=== PATIENT | female | born 1980 | race African-American/Black ===

== ENCOUNTER 2016-12-25 21:00 | Emergency (ER) ==
[2016-12-25] MEDS ORDERED: ROCEPHIN IM ONE (22:15)
[2016-12-25] MEDS ORDERED: DECADRON IM ONE (22:15)
[2016-12-25] MEDS ORDERED: XYLOCAINE-MPF 1% INJ ONE (22:15)
--- NOTE | 2016-12-25 22:20 | PROVIDER DOCUMENTATION ---
HPI-EENT General - General Chief Complaint: Flu Symptoms Stated Complaint: FLU SX Time Seen by Provider: 12/25/16 22:13 Source: patient Allergies/Adverse Reactions: Patient Allergies Allergy/AdvReac Type Severity Reaction Status Date / Time No Known Allergies Allergy Verified 12/25/16 22:14 Home Medications: Home Medication List Medication Instructions Recorded Confirmed Last Taken Type Amoxicillin/Pot Clavulanate 875 mg PO Q12HR #14 tablet 12/25/16 Unknown Rx [Augmentin] Methylprednisolone [Medrol Dosepak] 4 mg PO DIRECTED #1 package 12/25/16 Unknown Rx Promethazine/Dextromethorphan 2 tsp PO Q4H PRN PRN #240 ml 12/25/16 Unknown Rx [Promethazine-Dm Syrup] - History of Present Illness-EENT General Nature of Presenting Problem: 36 yof c/o sore throat, cough, congestion, runny nose and body aches x2 days. PT coughing up yellow sputum. No fever. EENT Location: reports: throat Quality of Pain: reports: aching Severity: reports: mild Onset/Duration: reports: 2 days ago Timing: reports: still present Prearrival Treatment: Initiated no prearrival treatment Associated Symptoms: reports: cough, fever, nasal congestion/drainage Other injuries?: denies: neck, head, back, other Locality of Occurance: Home Similar Symptoms Previously?: No Recently seen or treated by another doctor?: No - Eyes Eye Problem Symptoms: denies: eye pain, decrease vision, blurred vision, double vision, curtain, other, burning, itching, sensitivity to light, redness, matting , orbital swelling, eyelid swelling, foreign body sensation - Ears Ear Problem Symptoms: reports: none - Throat/Dental Throat/Dental Problem Symptoms: reports: sore throat Review of Systems - Adult - REVIEW OF SYSTEMS - ADULT Constitutional: reports: see HPI, chills, fever. denies: no symptoms reported, fatique, night sweats, weight gain, weight loss, other Eyes: reports: no symptoms reported. denies: see HPI, discharge, dry eyes, decreased vision, blurred vision, double vision, eye pain, redness, other Ears, Nose, Mouth & Throat: reports: see HPI, throat pain, throat swelling. denies: no symptoms reported, ear discharge, ear pain, hearing loss, tinnitus, epistaxis, sinus problem, nose pain, loose teeth, mouth/dental pain, mouth swelling, hoarseness, other Cardiovascular: reports: no symptoms reported. denies: see HPI, chest pain, edema, heart murmur, irregular heart rate, orthopnea, palpitations, poor circulation, PND, syncope, other Respiratory: reports: see HPI, cough. denies: no symptoms reported, chronic cough, dyspnea on exertion, excessive sputum production, hemoptysis, pleurisy, shortness of breath, wheezing, other Gastrointestinal: reports: no symptoms reported. denies: see HPI, abdominal pain, hematemesis, constipation, diarrhea, difficulty swallowing, frequent heartburn, nausea, poor appetite, rectal bleeding, vomiting, other Genitourinary: reports: no symptoms reported. denies: see HPI, dysuria, discharge, frequency, flank pain, frequent UTI's, hematuria, hesitency, incontinence, urinary retention, urgency, other Musculoskeletal: reports: no symptoms reported. denies: see HPI, bone pain, back pain, frequent leg cramps, joint pain, joint swelling, muscle aches, muscle weakness, neck pain, other Integumentary: reports: no symptoms reported. denies: see HPI, hives, hair loss , itching, mole changes, nail changes, rash, skin sores/ulcer, skin thickening, other Neurological: reports: no symptoms reported. denies: see HPI, ataxia, dizziness /vertigo, headache/migraines, loss of balance, numbness, paresthesia, seizure, slurred speech, syncope, tremors, other All Other Systems: Reviewed and Negative Past History - Adult - PAST MEDICAL HISTORY-ADULT Review of Records: reports: Old Records Reviewed, Nursing Assessment Review, Medications Reviewed, Social history reviewed & non-contributory. Major Childhood Illnesses: reports: denies history - PRIOR SURGERIES/PROCEDURES Surgical/Procedure History: reports: none - IMMUNIZATION STATUS Childhood Immunizations: See Nurse Assessment Flu Vaccine: See Nurse Assessment Physical Exam- EENT - Physical Exam EENT Initial Vital Signs Reviewed: Yes General Appearance: appears well, alert, no apparent distress. negative: mild distress, moderate distress, severe distress, cachetic, obese, thin, anxious, lethargic, slow to respond, obtunded, combative, other Eye Exam: bilateral eye: normal inspection, PERRL, EOMI Ear Exam: bilateral ear: auricle normal, canal normal, TM normal Nasal Exam: discharge Throat Exam: pharynx swelling, pharynx tenderness Neck: non-tender, full range of motion, supple, normal inspection. negative: Brudzinski's sign, carotid bruit, C-spine tenderness, limited range of motion, lymphadenopathy, meningismus, trachial deviation, tender lateral, tender midline , thyromegaly, other Respiratory: chest non-tender, lungs clear, normal breath sounds, no pleuratic chest pain, no respiratory distress, no accessory muscle use Cardiovascular: normal peripheral pulses, regular rate, rhythm, no edema, no gallop, no JVD, no murmur Abdominal Exam: normal bowel sounds, non tender, soft, no organomegaly, no pulsatile mass Lymphatic: no adenopathy Back Exam: normal inspection, no CVA tenderness, no vertebral tenderness Extremity: normal range of motion, non-tender, normal gait, normal inspection, no pedal edema, no calf tenderness, normal capillary refill Integumentary: normal color, normal turgor, warm/dry Neurologic: grossly normal Psych/Mental Status: oriented x 3 Progress - PLAN OF CARE/RESULTS Progress/Plan/Lab Results: Laboratory Tests 12/25/16 21:15 Influenza A (Rapid) NEGATIVE Influenza B (Rapid) NEGATIVE Orders Category Date Time Status Flu [INFLUENZA SCREEN PL] Stat Lab 12/25/16 21:15 Completed CefTRIAXONE [Rocephin] Med 12/25/16 22:15 Discontinued 1 gm IM NOW ONE Dexamethasone [Decadron] Med 12/25/16 22:15 Discontinued 10 mg IM NOW ONE Lidocaine 1% Pf [Xylocaine-Mpf 1%] Med 12/25/16 22:15 Discontinued 5 ml INJ NOW ONE Vital Signs Temp Pulse Resp BP Pulse Ox 12/25/16 22:31 99.2 F 85 18 114/75 100 12/25/16 21:15 98.2 F 70 18 136/70 97 No Known Allergies Allergy (Verified 12/25/16 22:14) Amoxicillin/Pot Clavulanate [Augmentin] 875 mg PO Q12HR #14 tablet 12/25/16 Methylprednisolone [Medrol Dosepak] 4 mg PO DIRECTED #1 package 12/25/16 Promethazine/Dextromethorphan [Promethazine-Dm Syrup] 2 tsp PO Q4H PRN PRN #240 ml 12/25/16 Laboratory 12/25/16 21:15 Influenza A (Rapid) NEGATIVE Influenza B (Rapid) NEGATIVE Departure - Departure Time of Disposition Order: 22:16 DIAGNOSIS: Bronchitis Upper respiratory infection Qualifiers: URI type: unspecified URI Qualified Code(s): J06.9 - Acute upper respiratory infection, unspecified Disposition: HOME 01 Certified Medical Emergency: Emergent Condition: Stable Additional Instructions: ED Follow Up Instructions: You have been treated by a care provider in the Emergency Department. These instructions are being provided to you so you can have an understanding of how to care for yourself upon discharge. Upon discharge from the Emergency Department, you are responsible for making arrangements for follow-up care by a physician of your choice. Take all prescribed medications as directed. Return to the Emergency Department immediately for any new or worsening symptoms. You may call the Physician Referral phone number at [phone] to obtain a list of Physicians who are taking new patients. Prescriptions: Amoxicillin/Pot Clavulanate [Augmentin] 875 mg PO Q12HR #14 tablet Methylprednisolone [Medrol Dosepak] 4 mg PO DIRECTED #1 package Promethazine/Dextromethorphan [Promethazine-Dm Syrup] 2 tsp PO Q4H PRN PRN #240 ml PRN Reason: Cough Referrals: None,PCP [Primary Care Provider] - Forms: Return to School/Parent Work Instructions: Dextromethorphan; Promethazine oral solution, Acute Bronchitis, [id number], Upper Respiratory Infection, Adult, [id number], Methylprednisolone tablets, Amoxicillin; Clavulanic Acid extended-release tablets Attestation - Physician/ DANIEL Attestation Patient care was provided by Advanced Practice Provider:: Yes Advanced Practice Provider:: Cj Prado Advanced Practice Provider documentation review:: The Mid-level provider documentation, treatment plan and medical decision making was reviewed by the physician who agrees with all treatment and medical decision making by the [facility]. Physician Attestation - Physician Attestation I, the provider, attest to the following statement:: Kirk Aquino Physician documentation Attestation:: This documentation recorded by the scribe accurately reflects the service I personally performed and the decisions made by me.
[2016-12-25 22:36] VITALS: BP 114/75
== END 2016-12-25 22:39 | disposition home or self-care (01) ==
LOC: P.ED 21:00
DX: J40 Bronchitis, not specified as acute or chronic (principal); J06.9 Acute upper respiratory infection, unspecified; J02.9 Acute pharyngitis, unspecified; R05 Cough; R09.81 Nasal congestion; R09.89 Other specified symptoms and signs involving the circulatory and respiratory systems; R09.3 Abnormal sputum; R50.9 Fever, unspecified; R52 Pain, unspecified; R22.1 Localized swelling, mass and lump, neck
CPT/HCPCS: 87804; 96372; J0696